=== PATIENT | male | born 1950 | race African-American/Black ===

== ENCOUNTER 2018-05-04 07:49 | Day surgery (SDC) | payer MEDICARE ==
[2018-05-03 11:49] VITALS: BMI 30.5
[2018-05-04] MEDS ORDERED: Lidocaine 1% PF 5 ML VIAL ONE (15:00)
[2018-05-04] MEDS ORDERED: PROPOFOL 200 MG/20 ML VIAL ONE (15:00)
--- NOTE | 2018-05-05 01:05 | OP ---
DATE OF PROCEDURE: 05/04/2018 PREPROCEDURE DIAGNOSES: Personal history of colon cancer, 4 years ago, had low anterior resection wi caitie Paula. It is not clear we had his initial diagnosis. We have not performed his previous co lonoscopies. He is a new patient to the office on 04/10/2018. POSTPROCEDURE DIAGNOSES: 1. Four polyps scattered in the ascending colon from 2-4 mm in size were removed with a combination of cold snare and hot snare polypectomy. As the patient is on Coumadin, the larger of the 2 polypect lynn sites were clipped. The largest was 4 mm in size. 2. Mass in the ascending colon at 50 cm from the colostomy opening. This is contracted centrally. It is borderline in appearance removed endoscopically. Multiple biopsies were obtained and obt ained the pathology to determine best management of this. We would not be able to remove today darby arnold to the fact that he is on Coumadin, which has only been held for 2 days, and with his prior hist ory of malignancies, this polyp has significant risk for early malignancy or high-grade dysplasia, wh ich would require a segmental resection. Therefore, wait for pathology on biopsies and then make leslie ns for either attempted endoscopic removal with endoscopic mucosal resection or surgical referral onc e pathology is available. PLAN: He will follow up in my office next 05/11/2018, appointment was made for him at 12:00. These findings were discussed with the patient and the . PROCEDURE IN DETAIL: After the patient was informed of the risks, benefits, possible complications o f endoscopy including perforation, bleeding, reactions to medication and aspiration, informed consent was obtained. The patient was brought to the endoscopy suite where he was sedated in a gradual fash ion. Once he was comfortable, a digital exam with ostomy was performed in the left lower quadrant. The endoscope was advanced through the ostomy and into the colon to the cecum, which was identified b y ileocecal valve and appendiceal orifice. There were 4 diminutive polyps from the cecum to the asce nding colon, which were removed by snare polypectomy with hot and cold. Two had some significant bur n sites and these were clipped to reduce risk of bleeding, as the patient needs to restart his Coumad in. There was a large polyp at 50 cm from the ostomy, which is probably 4 cm in size, broad-base with demario tral depression. It was not hard or firm, but multiple biopsies were taken and submitted to Patholog y. It was not removed for the reasons outlined above in the postprocedure diagnosis. The scope was then removed. No other polyps or lesions were seen. The patient does not have anymore. The o stomy bag was replaced. The patient brought to recovery room in stable condition. POSTPROCEDURE RECOMMENDATIONS: The patient is instructed to resume his coumadin today with regard to the fact he had a pulmonary embolus in February.
== END 2018-05-04 12:45 | disposition home or self-care (01) ==
LOC: SDC 07:49
PROVIDERS: ATTEND Internal Medicine Gastroenterology
PROC: 0DBE8ZX Excision of Large Intestine, Via Natural or Artificial Opening Endoscopic, Diagnostic (ICD-10-PCS; principal; 2018-05-04)
PROC: 0DBK8ZX Excision of Ascending Colon, Via Natural or Artificial Opening Endoscopic, Diagnostic (ICD-10-PCS; 2018-05-04)
PROC: 0DBH8ZX Excision of Cecum, Via Natural or Artificial Opening Endoscopic, Diagnostic (ICD-10-PCS; 2018-05-04)
DX: Z12.11 Encounter for screening for malignant neoplasm of colon (principal); D12.6 Benign neoplasm of colon, unspecified; I10 Essential (primary) hypertension; Z85.038 Personal history of other malignant neoplasm of large intestine; Z87.891 Personal history of nicotine dependence; Z86.711 Personal history of pulmonary embolism; Z79.01 Long term (current) use of anticoagulants; Z79.899 Other long term (current) drug therapy; Z80.0 Family history of malignant neoplasm of digestive organs; Z90.49 Acquired absence of other specified parts of digestive tract; Z93.3 Colostomy status; Z98.890 Other specified postprocedural states
CPT/HCPCS: 88305; J2001; J2704

== ENCOUNTER 2018-07-17 06:11 | Inpatient (IN) | payer MEDICARE ==
[2018-07-16 11:50] VITALS: BMI 30.9
[2018-07-17] MEDS ORDERED: cefOXitin 2 GM VIAL ONE ×3 (06:41→08:47)
[2018-07-17] MEDS ORDERED: Ketorolac Tromethamine 30 MG/ML VIAL ONE (06:41)
[2018-07-17] MEDS ORDERED: Sodium Chloride 0.9% 100 ML ONE (06:42)
[2018-07-17] MEDS ORDERED: Bupivacaine/Epinephrine 0.25% 30 ML VIAL ONE (06:48)
[2018-07-17 06:57] LABS: #Lymphocytes 1.6 thou/uL (1.20-3.40); #Monocytes 0.4 thou/uL (0.11-0.59); #Neutrophils 2.1 thou/uL (1.40-6.50); %Basophils 0.6 % (0.0-1.0); %Eosinophils 0.3 % (0.0-10.0); %Lymphocytes 39.1 % (21.0-51.0); %Monocytes 8.6 % (0.0-10.0); %Neutrophils 51.4 % (42.0-75.0); Hemoglobin 15.6 g/dL (14.0-18.0); Mean Corpuscular HGB CONC 31.6 g/dL (32.0-36.0); Mean Corpuscular Volume 98.2 fL (78.0-98.0); Mean Platelet Volume 6.8 fL (7.4-10.4); Platelet Count 289 thou/uL (130-400); Red Blood Cell (RBC) Count 5.03 mill/uL (4.70-6.10); White Blood Cell (WBC) Count 4.2 thou/uL (4.8-10.8)
[2018-07-17] MEDS ORDERED: Fentanyl 100 MCG/2 ML VIAL ONE ×3 (06:59→10:43)
[2018-07-17] MEDS ORDERED: Midazolam HCl 2 mg/2 ml Vial ONE (06:59)
[2018-07-17] MEDS ORDERED: Dexamethasone 4 mg/ml Vial ONE (07:00)
[2018-07-17] MEDS ORDERED: Lidocaine 2% w/Epinephrine 1:200K 20 ML VIAL ONE (07:15)
[2018-07-17 07:18] LABS: Anion Gap 16 mmol/L (10-20); BUN (Urea Nitrogen) 13 mg/dL (8.4-25.7); Calc. Creatinine Clearance 121 mL/min (70-130); Calcium 10.1 mg/dL (7.8-10.44); Carbon Dioxide 20 mmol/L (23-31); Chloride 108 mmol/L (98-107); Estimated GFR-MDRD Greater than 90; Glucose 113 mg/dL (80-115); Potassium 4.3 mmol/L (3.5-5.1); Sodium 140 mmol/L (136-145)
[2018-07-17] MEDS ORDERED: Lidocaine 1% w/Epinephrine 1:100K 30 ML VIAL ONE ×2 (08:30→09:47)
[2018-07-17] MEDS ORDERED: Bupivacaine HCl 0.5%/Epinephrine 1:200,000/PF 30 ml Vial ONE (13:31)
[2018-07-17] MEDS ORDERED: PROPOFOL 200 MG/20 ML VIAL ONE (14:54)
[2018-07-17] MEDS ORDERED: Ondansetron PF 4 MG/2 ML Vial ONE (14:54)
[2018-07-17] MEDS ORDERED: Lidocaine 1% PF 5 ML VIAL ONE (14:54)
[2018-07-17] MEDS ORDERED: Glycopyrrolate 0.2 MG/ML 5 ML SYRINGE ONE (14:54)
[2018-07-17] MEDS ORDERED: hydrALAZINE 20 MG/ML VIAL SLOW IVP PRN (15:41)
[2018-07-17] MEDS ORDERED: Promethazine HCl 25 MG/ML VIAL IM PRN (15:41)
[2018-07-17] MEDS ORDERED: Morphine 10 MG/ML VIAL SLOW IVP PRN (15:41)
[2018-07-17] MEDS ORDERED: Ondansetron PF 4 MG/2 ML Vial IVP PRN (15:41)
[2018-07-17] MEDS: D5 1/2 NS w/20 mEq KCL 1,000 ML IV SCH (16:11)
[2018-07-17] MEDS: Ketorolac Tromethamine 30 MG/ML VIAL IVP SCH ×3 (16:11→22:05)
[2018-07-17] MEDS: Acetaminophen 1,000 MG in Premix Bag 1 BAG IVPB SCH ×2 (16:54→22:06)
[2018-07-17] MEDS: Enoxaparin Sodium 40 MG/0.4 ML SYRINGE SC SCH (20:34)
[2018-07-17] MEDS: Famotidine/PF 20 mg/2ml Vial SLOW IVP SCH (20:34)
[2018-07-17] MEDS: Famotidine 20 MG TAB PO SCH (20:35)
[2018-07-18] MEDS: D5 1/2 NS w/20 mEq KCL 1,000 ML IV SCH ×3 (02:00→16:44)
[2018-07-18] MEDS: Ketorolac Tromethamine 30 MG/ML VIAL IVP SCH ×4 (03:58→22:29)
[2018-07-18] MEDS: Acetaminophen 1,000 MG in Premix Bag 1 BAG IVPB SCH ×2 (03:59→08:52)
[2018-07-18 06:04] LABS: #Lymphocytes 0.7 thou/uL (1.20-3.40); #Monocytes 0.5 thou/uL (0.11-0.59); #Neutrophils 5.5 thou/uL (1.40-6.50); %Basophils 0.1 % (0.0-1.0); %Eosinophils 0.1 % (0.0-10.0); %Lymphocytes 10.1 % (21.0-51.0); %Monocytes 7.7 % (0.0-10.0); %Neutrophils 82.1 % (42.0-75.0); Hemoglobin 11.3 g/dL (14.0-18.0); Mean Corpuscular Hemoglobin 31.6 pg (27.0-31.0); Mean Corpuscular Volume 98.6 fL (78.0-98.0); Platelet Count 212 thou/uL (130-400); RBC Distribution Width 11.6 % (11.5-14.5); Red Blood Cell (RBC) Count 3.56 mill/uL (4.70-6.10); White Blood Cell (WBC) Count 6.7 thou/uL (4.8-10.8)
[2018-07-18 07:08] LABS: Anion Gap 9 mmol/L (10-20); BUN (Urea Nitrogen) 12 mg/dL (8.4-25.7); Calc. Creatinine Clearance 127 mL/min (70-130); Calcium 8.3 mg/dL (7.8-10.44); Carbon Dioxide 24 mmol/L (23-31); Chloride 106 mmol/L (98-107); Estimated GFR-MDRD Greater than 90; Glucose 129 mg/dL (80-115); Potassium 3.9 mmol/L (3.5-5.1); Sodium 135 mmol/L (136-145)
[2018-07-18] MEDS ORDERED: HYDROcodone/Acetaminophen 7.5/325 mg Tablet PO PRN ×2 (08:29)
[2018-07-18] MEDS: Famotidine 20 MG TAB PO SCH ×2 (08:52→20:39)
[2018-07-18] MEDS: Famotidine/PF 20 mg/2ml Vial SLOW IVP SCH ×2 (08:52→20:40)
--- NOTE | 2018-07-18 09:57 | PRG ---
DATE OF SERVICE: 07/18/2018 Mr. Tompkins is postoperative day #1 from repair of a large left inguinal hernia and a laparoscopic rig ht colectomy. He is resting comfortably on the surgical floor. He has no complaints. His Keller cat heter was just removed and he has not voided. He has been tolerating clear liquid diet overnight. Marilyn palmer denies nausea or vomiting. He has had no significant ostomy output since surgery. PHYSICAL EXAMINATION: VITAL SIGNS: He is afebrile, pulse is 92 and regular, blood pressure is 137/79. LUNGS: Clear to auscultation. CARDIAC: Regular rate and rhythm. ABDOMEN: Soft. All laparoscopic incisions are well healed as well as his left inguinal incision. Marilyn palmer does have some swelling along his left spermatic cord and down into his scrotum. This is certainly not unexpected given his large hydrocele and his very large previously incarcerated inguinal hernia. LABORATORY STUDIES: CBC reveals a hemoglobin of 11.3 with a white blood cell count of 6.7. Chemistr y profile reveals no significant electrolyte abnormalities. BUN and creatinine are normal. ASSESSMENT: The patient is doing well following his fairly lengthy surgery for his large incarcerate d hernia and his right hemicolectomy. We will continue clear liquids today and hopefully he will be able to void. I have encouraged ambulation and minimization of narcotics.
[2018-07-18] MEDS: Enoxaparin Sodium 40 MG/0.4 ML SYRINGE SC SCH (20:39)
[2018-07-19] MEDS: D5 1/2 NS w/20 mEq KCL 1,000 ML IV SCH (00:50)
[2018-07-19] MEDS: Ketorolac Tromethamine 30 MG/ML VIAL IVP SCH ×2 (05:44→10:38)
[2018-07-19] MEDS ORDERED: D5 1/2 NS w/20 mEq KCL 1,000 ML IV SCH (09:00)
[2018-07-19] MEDS: Famotidine 20 MG TAB PO SCH (09:11)
[2018-07-19] MEDS: Famotidine/PF 20 mg/2ml Vial SLOW IVP SCH (09:12)
[2018-07-19 09:19] LABS: #Monocytes 0.3 thou/uL (0.11-0.59); #Neutrophils 5.4 thou/uL (1.40-6.50); %Eosinophils 0.3 % (0.0-10.0); %Lymphocytes 15.2 % (21.0-51.0); %Monocytes 4.4 % (0.0-10.0); Hemoglobin 12.2 g/dL (14.0-18.0); Mean Corpuscular HGB CONC 32.4 g/dL (32.0-36.0); Mean Corpuscular Volume 98.9 fL (78.0-98.0); Platelet Count 210 thou/uL (130-400); RBC Distribution Width 11.8 % (11.5-14.5); Red Blood Cell (RBC) Count 3.81 mill/uL (4.70-6.10); White Blood Cell (WBC) Count 6.8 thou/uL (4.8-10.8)
[2018-07-19 12:30] VITALS: BP 150/79; TEMP 98.5
--- NOTE | 2018-07-20 13:39 | OP ---
DATE OF PROCEDURE: 07/17/2018 PREOPERATIVE DIAGNOSES: Colonoscopically unresectable proximal transverse colon polyp, incarcerated left inguinal hernia, left hydrocele. POSTOPERATIVE DIAGNOSES: Colonoscopically unresectable proximal transverse colon polyp, incarcerated left inguinal hernia, left hydrocele. OPERATION PERFORMED: Repair of incarcerated left inguinal hernia with extra-large mesh, patch and pl ug, left inguinal hydrocelectomy, laparoscopic hand-assisted right hemicolectomy. SURGEON: Arvin Paula M.D. ANESTHESIA: General endotracheal. INDICATIONS: The patient is a 68-year-old black male. He had undergone recent colonoscopy revealing concerning polyp that was unresectable at approximately the hepatic flexure. This was tattooed. He is referred for treatment of this. The patient is known to myself from prior abdominoperineal resec tion. He therefore has a permanent left-sided colostomy. He had a large left inguinal hernia previo usly that had never been addressed. Due primarily to logistical concerns, I have recommended repairi ng both the hernia and performing the colon resection simultaneously. PROCEDURE IN DETAIL: Informed consent was obtained. The patient was taken to the operating room whe re general endotracheal anesthesia obtained with the patient in supine position. A TAP block had bee n placed by Anesthesia preoperatively. His abdomen and groin were prepped with ChloraPrep and draped in sterile fashion. His colostomy was excluded with a sterile occlusive dressing. Attention was turned first to the left hernia. Local anesthetic was infiltrated using 1% lidocaine w ith epinephrine and an oblique left inguinal incision was created. Dissection was carried through sk in and subcutaneous tissue down to the fascia. This was opened parallel to its fibers so as to open the external ring. There was a large amount of tissue that comprised the spermatic cord. With diffi culty, this was dissected and encircled with a Alaina drain. I dissected the cord structures and fo und that he had a very large cord lipoma. This was resected back to the internal ring and removed. There was also a large hernia sac. This was a large indirect hernia. This was also carefully dissec sarah from surrounding cord structures and mobilized back to the internal ring. This was a large defec t. I carefully mobilized the sac without ever entering the sac back to the preperitoneal space. I t fely obtained an extra-large mesh plug, which I secured to the apex of the hernia sac and I inverted t he complex into the preperitoneal space. The mesh plug was secured to surrounding fascia with 4 inte rrupted sutures of 2-0 Vicryl. I then placed 2 imbricating sutures of 2-0 Vicryl. A mesh patch was then obtained, trimmed to appropriate size and placed within the floor of the inguin al canal. It was secured to surrounding structures with several interrupted sutures of 2-0 Vicryl. The internal ring was reapproximated by securing the mesh tails lateral to the internal ring. The hydrocele was easily reduced up into the inguinal canal. I dissected down to the level of the tu chavez vaginalis. This was incised and a large volume of clear yellowish fluid was aspirated. I then excised a large window of the tunica vaginalis. This is a very large hydrocele and I therefore was u nable to completely excise the tunica vaginalis, but most of it was removed. Meticulous hemostasis o btained with electrocautery and the testicle was replaced within the scrotum. The wound was irrigated and all irrigant was aspirated. Meticulous hemostasis obtained. The wound w as closed in layers using 3-0 Vicryl to approximate the fascia and the remainder of the wound closed in layers with 3-0 and 4-0 Monocryl. Dermabond was placed externally. Attention was then turned to his colon. Port site selection had to be tailored because of his prior surgery and his known left lower quadrant colostomy. I initially obtained access in the left upper q uadrant where I made 5 mm incision, placed a Veress needle and passed a 5 mm port in the abdomen. In spection was carried out using the laparoscopic camera. I selected a site for a second 5 mm port jus t to the right of midline in an area that did not involve any adhesions. I then selected a site for the colon extraction in the right upper quadrant and placed an oblique 8 cm incision. Muscle splitti ng was used to gain access into the abdominal cavity and an Jose wound retractor was placed. GelPo rt was fixed to the wound retractor and operation was continued. I was able to identify the site of the tattoo in the proximal transverse colon. I addressed the mid transverse colon, where I cleared t he omentum. I then cleared the omentum off much of the distal transverse colon to allow mobilization . The right colon was mobilized from lateral abdominal wall by incising the white line of Toldt. Th e hepatic flexure was mobilized in a similar fashion. All dissection was carried out with the LigaSu re device. Extensive dissection had to be carried out at the right lower quadrant due to adhesions f rom his prior surgery. Significant work had to be performed to mobilize the appendix and even more s o the distal ileum, which was adherent within the pelvis. With effort, I was able to fully mobilize the ileum, the right colon and proximal transverse colon. These were all then withdrawn through the GelPort. Due to the volume of tissue, I was unable to perform a double-stapled anastomosis. Instead , I divided the transverse colon several centimeters distal to the area of the tattoo with a single f haydee of the LUANA stapler. I then selected an appropriate segment of the ileum and divided this with an other fire. The intervening mesentery was taken down between clamps and 2-0 silk ties. The middle c olic and ileocolic vessels were ligated with 2-0 silk ties. The specimen was passed off the field. The two ends of the bowel were approximated in an antiperistaltic fashion. These were anastomosed wi th a single fire of the LUANA-75 stapler. The common enterotomy was then closed with a final fire of t same stapler. The anastomosis was buttressed with several interrupted sutures of 3-0 silk. The m esenteric defect was not closed. The bowel was then dropped back down to the abdominal cavity and pn eumoperitoneum was reestablished. The abdomen was thoroughly irrigated and all irrigant was aspirate d. There was no evidence of any blood loss from any site. All ports and instruments removed under d irect vision. Pneumoperitoneum was carefully evacuated. The fascia at the extraction site was close d in two layers with running suture of number 1 PDS. Not mentioned above is that during the time that the bowel was opened, segregated instruments were us ed and gloves were changed after this. Also, as the abdomen has been closed, the closing set was use d and prior to initiating closure, gowns and gloves were changed. After closing the fascia, the wound was irrigated with 2 liters of saline and all irrigant was aspira sraah. The remainder of the wound was closed in layers with 3-0 and 4-0 Monocryl. The other port site s were closed with 4-0 Monocryl. Dermabond was placed external to each port site. There were no com plications during any portion of the operation. Blood loss was negligible. The patient tolerated th e procedure well and was taken to recovery room in stable condition.
== END 2018-07-19 13:22 | disposition home or self-care (01) | DRG 330 ==
LOC: SURG A 06:11 → EDSTATUS 14:01 → T4-A 14:36 → SURG A 18:14
PROVIDERS: ADMIT Specialist; ATTEND Specialist
PROC: 0DTF4ZZ Resection of Right Large Intestine, Percutaneous Endoscopic Approach (ICD-10-PCS; principal; 2018-07-17)
PROC: 0VB70ZZ Excision of Left Tunica Vaginalis, Open Approach (ICD-10-PCS; 2018-07-17)
PROC: 0YU60JZ Supplement Left Inguinal Region with Synthetic Substitute, Open Approach (ICD-10-PCS; 2018-07-17)
PROC: 0VBG0ZZ Excision of Left Spermatic Cord, Open Approach (ICD-10-PCS; 2018-07-17)
DX: D12.2 Benign neoplasm of ascending colon (principal); K40.30 Unilateral inguinal hernia, with obstruction, without gangrene, not specified as recurrent; I10 Essential (primary) hypertension; N43.3 Hydrocele, unspecified; D17.6 Benign lipomatous neoplasm of spermatic cord; Z85.048 Personal history of other malignant neoplasm of rectum, rectosigmoid junction, and anus; Z93.3 Colostomy status; Z79.01 Long term (current) use of anticoagulants
CPT/HCPCS: 36415; 80048; 85025; 88307; C1781; J0131; J0360; J0670; J0694; J1100; J1650; J1885; J2001; J2250; J2405; J2704; J3010; J7050; S0028

== ENCOUNTER 2018-08-05 03:36 | Emergency (ER) | payer MEDICARE | END 2018-08-05 06:42 | disposition home or self-care (01) | LOC: ERS 03:36 | DX: L76.32 Postprocedural hematoma of skin and subcutaneous tissue following other procedure (principal); L02.211 Cutaneous abscess of abdominal wall; I10 Essential (primary) hypertension; Z87.891 Personal history of nicotine dependence; Z79.01 Long term (current) use of anticoagulants; Z79.899 Other long term (current) drug therapy | CPT/HCPCS: 99284 ==

== ENCOUNTER 2018-08-14 07:51 | Inpatient (IN) | payer MEDICARE ==
[2018-08-14 12:52] VITALS: BMI 28.0
[2018-08-14] MEDS ORDERED: Dextrose 5% in Water 1,000 ML IV PRN (16:02)
[2018-08-14] MEDS ORDERED: Dextrose 50% Abboject 50 ML SYRINGE SLOW IVP PRN (16:02)
[2018-08-14] MEDS ORDERED: Lactated Ringer's 1,000 ML IV SCH (16:15)
[2018-08-14 16:54] LABS: #Lymphocytes 0.8 thou/uL (1.20-3.40); #Monocytes 0.3 thou/uL (0.11-0.59); #Neutrophils 6.4 thou/uL (1.40-6.50); %Eosinophils 0.4 % (0.0-10.0); %Lymphocytes 10.4 % (21.0-51.0); %Monocytes 3.6 % (0.0-10.0); %Neutrophils 85.7 % (42.0-75.0); Hemoglobin 8.3 g/dL (14.0-18.0); Mean Corpuscular HGB CONC 33.6 g/dL (32.0-36.0); Mean Corpuscular Volume 89.3 fL (78.0-98.0); Mean Platelet Volume 6.6 fL (7.4-10.4); Platelet Count 282 thou/uL (130-400); RBC Distribution Width 14.6 % (11.5-14.5); Red Blood Cell (RBC) Count 2.78 mill/uL (4.70-6.10); White Blood Cell (WBC) Count 7.4 thou/uL (4.8-10.8)
--- NOTE | 2018-08-14 17:02 | RAD ---
SINGLE VIEW OF THE CHEST: 08/14/18 COMPARISON: 08/04/14. HISTORY: Pneumonia. COMPARISON: Single view of the chest shows a normal sized cardiomediastinal silhouette. There is a hazy opacity i n the right lower lung base which could represent an infiltrate and/or adjacent infiltrate. No left s ided infiltrate or pleural effusion is seen. IMPRESSION: Right basilar atelectasis versus infiltrate and adjacent pleural effusion. POS: [facility]
[2018-08-14 17:26] LABS: ALT (SGPT) 17 U/L (8-55); AST (SGOT) 26 U/L (5-34); Albumin 2.6 g/dL (3.4-4.8); Alkaline Phosphatase 43 U/L (40-150); Anion Gap 12 mmol/L (10-20); BUN (Urea Nitrogen) 8 mg/dL (8.4-25.7); Bilirubin, Total 0.6 mg/dL (0.2-1.2); Calc. Creatinine Clearance 140 mL/min (70-130); Calcium 8.7 mg/dL (7.8-10.44); Carbon Dioxide 25 mmol/L (23-31); Chloride 95 mmol/L (98-107); Estimated GFR-MDRD Greater than 90; Globulin 4.7 g/dL (2.4-3.5); Glucose 111 mg/dL (80-115); Potassium 3.7 mmol/L (3.5-5.1); Protein, Total 7.3 g/dL (5.8-8.1); Sodium 128 mmol/L (136-145)
[2018-08-14] MEDS: Sodium Chloride 0.9% 1,000 ML IV SCH (18:05)
[2018-08-14] MEDS: Enoxaparin Sodium 40 MG/0.4 ML SYRINGE SC SCH (21:20)
[2018-08-14] MEDS: Ciprofloxacin 500 MG TAB PO SCH (21:20)
[2018-08-14] MEDS: Famotidine 20 MG TAB PO SCH (21:20)
[2018-08-15] MEDS: Tamsulosin HCl 0.4 MG CAP PO SCH (08:46)
[2018-08-15] MEDS: Famotidine 20 MG TAB PO SCH ×2 (08:46→21:41)
[2018-08-15] MEDS: Ciprofloxacin 500 MG TAB PO SCH ×2 (08:46→21:41)
[2018-08-15] MEDS: Sodium Chloride 0.9% 1,000 ML IV SCH ×2 (08:47→22:46)
--- NOTE | 2018-08-15 10:52 | CT ---
CT ABDOMEN AND PELVIS WITH CONTRAST: INDICATIONS: Colon cancer followup. Status post colectomy, hernia repair, and hydrocelectomy on 07/23/2018. COMPARISON: CT abdomen and pelvis from 04/11/2014. TECHNIQUE: Multiple axial tomograms obtained through the abdomen and pelvis with IV enhancement. Oral contrast was given. FINDINGS: Stranding in the right lung base suggests mild atelectasis. Mild atelectatic change in the posterior gutter on the left is also noted. Small cysts along the inferior outer margin of the liver, measuring approximately 1 cm, are stable. The liver, spleen, and pancreas appear unremarkable. Small sliding diaphragmatic hernia. Stomach and duodenum unremarkable. Small bowel loops appear normal. There are changes of a right colectomy and a partial left colectomy. There is a left colostomy in th e left lower quadrant. Rectal stump. There is a circumscribed external lumen of gas-fluid collection in the anterior right abdomen, abutti ng the anterior abdominal wall. This also abuts the colon and extends to the suture line, in the wal l of the colon. A small filling defect within the colon with dislocation is present. A small extral uminal gas pocket extends from this fluid collection, superiorly, along the anterior abdominal wall, to the inferior margin of the liver, anteriorly. This circumscribed, fluid-dense collection measures 4 cm in craniocaudal dimension in the coronal plane x approximately 2 cm in AP dimension in the axia l plane. There is an incision in the left groin with radiopaque packing material in the subcutaneous tissues o f the incision site. There is an underlying complex fluid collection within the left inguinal ring, extending into the left scrotum, with tiny gas pockets, measuring up to 6 cm. This corresponds to th e history of recent surgery and hydrocelectomy; however, the underlying complex fluid-air collection is concerning for postoperative hematoma or abscess. The adrenal glands appear normal. The kidneys show mild perinephric stranding. There are small, cystic lesions in the right renal griselda ex, which are stable from the prior study. There is no hydronephrosis or hydroureter. The bladder is mildly distended. There is a 2 to 3 mm calculus within the lumen of the bladder, at t he right UVJ. This does not appear to be producing obstructive change on the right. IMPRESSION: 1. Extraluminal fluid-gas collection along the anterior abdominal wall, in the right mid abdomen, ab utting the suture line of the transverse colon, at the hepatic flexure. Findings may indicate a smal l leak with confined abscess. This extraluminal gas extends along the anterior abdominal wall, super iorly, to the margin of the liver. 2. Incision site in the left inguinal region, consistent with a history of hernia repair. Radiopaqu e packing material in the subcutaneous tissues. There is an underlying complex fluid-gas collection within the inguinal canal and into the scrotum, concerning for hematoma or abscess. Recommend clinic al correlation. 3. Tiny calculus along the posterior bladder wall, at the right ureterovesical junction. No obstruc tive changes apparent. Dr. Paula is being paged for notification of these findings at the time of the dictation. CODE CR POS: [facility]
[2018-08-15] MEDS: Ferrous Sulfate 325 MG TAB PO SCH (16:56)
[2018-08-15] MEDS: Acetaminophen 500 MG TAB PO PRN (16:56)
[2018-08-15] MEDS: metroNIDAZOLE 500 MG in Premix Bag 1 BAG IVPB SCH (19:12)
[2018-08-15] MEDS: Enoxaparin Sodium 40 MG/0.4 ML SYRINGE SC SCH (21:41)
--- NOTE | 2018-08-15 23:22 | PRG ---
DATE OF SERVICE: 08/15/2018 SUBJECTIVE: Mr. Tompkins is in hospital, day #2. He is about a month out from his laparoscopic right hemicolectomy and repair of a large left inguinal hernia and hydrocele. This morning, he has no complaints. He denies any pain. He tells me he was eating better and feeling better. He was hydrated overnight with normal saline. I have encouraged oral intake and physical activity. OBJECTIVE: VITAL SIGNS: On examination, it is noted that he has had some low-grade temperature elevations up to 100.9. His pulse has been elevated intermittently also up to 120 earlier today, but generally around 100. Blood pressure is within normal limits. LABORATORY STUDIES: He did not have any repeat laboratory studies today. CT scan of the abdomen and pelvis was obtained today. This does reveal a loculated extraluminal air/fluid collection in the right abdomen near his right colonic anastomosis. There is no contrast in this even though the contrast proceeds through the anastomosis. I am not certain if this may have represented a loculated leak that is resolving on its own. ASSESSMENT: He seems to be stable. In light of the CT scan, I will start him on metronidazole as well as his current ciprofloxacin. We will see how he does over the next day or two before considering appropriate placement. Job ID: [id number]
[2018-08-16] MEDS: metroNIDAZOLE 500 MG in Premix Bag 1 BAG IVPB SCH ×2 (01:02→10:49)
--- NOTE | 2018-08-16 04:22 | HP ---
CHIEF COMPLAINT: Malaise, weakness. HISTORY OF PRESENT ILLNESS: This patient is a 68-year-old black male. He has a history of rectal cancer for which he underwent abdominoperineal resection in August 2014. He, at that time, was also recognized to have a large left inguinal hernia. He never followed up at that time for repair. He did undergo subsequent colonoscopy revealing a concerning right-sided colon polyp. I recommended laparoscopic right hemicolectomy. I felt that I could likely safely repair his left inguinal hernia at the same time since the patient has issues with appropriate followup. The patient underwent a relatively lengthy and challenging left inguinal hernia repair, left hydrocelectomy, and laparoscopic right hemicolectomy on July 17. His initial followup in my office after the surgery was unremarkable and he seemed to be doing well. About a week ago, he had presented to an outside hospital in [place]. Labs and CT scan were obtained at that point, and the patient was referred to our emergency room. In my absence, he seemed to have no significant problems and was prescribed antibiotics and discharged home. He followed up in my office this past week. He did have a small area of drainage from the medial aspect of his left inguinal incision. This was treated with a Alaina drain. He was continued on ciprofloxacin at that time and encouraged to increase his activity and his oral intake. He denied any pain or fever at that time. The day prior to this admission, on August 13, he had again called the office. His complained of him having little appetite and not really moving very much secondary to feeling weak. He was encouraged to present to this hospital. Unfortunately, he was taken by ambulance to the hospital in [place] once again. Due to bed restrictions, he was kept there overnight and therefore did not present to [facility] until today, August 14. Upon arrival, they have no specific complaints. He denies any pain at all. He tells me that he is eating well and ostomy function is good. He denies pain down in his groin or scrotum. His initial vital signs did, however, reveal some degree of tachycardia with a heart rate of about 100. He was afebrile. As it is difficult to discern what if any problems are truly occurring, I recommended admission to determine what his actual condition is. It can be challenging to obtain appropriate information from this patient and his . PAST MEDICAL HISTORY: Significant for a history of rectal cancer, large left inguinal hernia, hypertension, and history of pulmonary embolus. MEDICATIONS: Preoperative medications include nifedipine and Coumadin. ALLERGIES: NO KNOWN DRUG ALLERGIES. PERSONAL AND SOCIAL HISTORY: He is with three children. Retired and lives in [place]. REVIEW OF SYSTEMS: Otherwise unremarkable. FAMILY HISTORY: Noncontributory. PHYSICAL EXAMINATION: VITAL SIGNS: He is afebrile. Pulse is about 100 and blood pressure is within normal limits at 112/70. GENERAL: He is a well developed and well nourished, resting comfortably. Alert and oriented x3 and without complaints. HEAD, EYES, EARS, NOSE, and THROAT: Unremarkable. NECK: Supple. LUNGS: Clear to auscultation. CARDIAC: Regular rate and rhythm. ABDOMEN: Soft. All laparoscopic incisions are nicely healed. Bowel sounds are present and normoactive. Ostomy appliance is intact in the left lower quadrant. In the left lower inguinal area, his incision is well healed. He has a quarter-inch Alaina drain emanating from the medial aspect of his hernia incision. He has significant induration in the inguinal canal extending down into the left hemiscrotum. This has been chronic since his surgery and I suspect it is related to his significant inflammation following treatment of his hernia and hydrocele. LABORATORY DATA: CBC reveals a hemoglobin of 8.3 with white blood cell count of 7.4, and platelet count is 282. His hemoglobin level is substantially lower than when last checked, on July 19, it was 12.2. He tells me that he only recently resumed his Coumadin. His metabolic profile reveals sodium and chloride both low at 128 and 95 respectively. His BUN and creatinine are normal. His albumin is low at 2.6, and other liver function tests are within normal limits. Chest x-ray was obtained revealing possibly some atelectasis at the right base. ASSESSMENT: It is still difficult to discern what is really going on with Mr. Tompkins. He is certainly anemic and this may be symptomatic for him. I will check a CT scan of his abdomen and pelvis to rule out any significant problem. He did have CT scans performed when he was in [place], but I have never been provided with the disc from either of the CT scans. I was told by the emergency room physician that air/fluid collection on the right side of his abdomen near his anastomosis was significantly improved between the 2 CT scans. He has evidence of a hematoma associated with his left groin also. I will continue with antibiotics for now and obtain Occupational and Physical Therapy consults. He may benefit from a course of rehabilitation or [facility] facility. Given that he is about a month out from surgery, I cannot imagine he has any significant intraabdominal problem. Job ID: [id number]
[2018-08-16] MEDS: Acetaminophen 500 MG TAB PO PRN ×3 (05:19→20:46)
[2018-08-16 06:19] LABS: #Lymphocytes 0.7 thou/uL (1.20-3.40); #Monocytes 0.4 thou/uL (0.11-0.59); #Neutrophils 6.2 thou/uL (1.40-6.50); %Eosinophils 0.5 % (0.0-10.0); %Monocytes 4.8 % (0.0-10.0); %Neutrophils 84.8 % (42.0-75.0); Hemoglobin 7.8 g/dL (14.0-18.0); Mean Corpuscular HGB CONC 33.1 g/dL (32.0-36.0); Mean Corpuscular Hemoglobin 29.6 pg (27.0-31.0); Mean Corpuscular Volume 89.3 fL (78.0-98.0); Mean Platelet Volume 6.7 fL (7.4-10.4); Platelet Count 303 thou/uL (130-400); RBC Distribution Width 14.7 % (11.5-14.5); Red Blood Cell (RBC) Count 2.63 mill/uL (4.70-6.10); White Blood Cell (WBC) Count 7.3 thou/uL (4.8-10.8)
[2018-08-16 06:39] LABS: Anion Gap 11 mmol/L (10-20); BUN (Urea Nitrogen) 5 mg/dL (8.4-25.7); Calc. Creatinine Clearance 148 mL/min (70-130); Calcium 8.4 mg/dL (7.8-10.44); Carbon Dioxide 24 mmol/L (23-31); Chloride 99 mmol/L (98-107); Estimated GFR-MDRD Greater than 90; Glucose 114 mg/dL (80-115); Potassium 3.8 mmol/L (3.5-5.1); Sodium 130 mmol/L (136-145)
[2018-08-16 07:37] LABS: INR-International Normal Ratio 1.7
[2018-08-16 07:38] LABS: PTT 71.9 SEC (22.9-36.1)
[2018-08-16 07:50] LABS: ALT (SGPT) 12 U/L (8-55); AST (SGOT) 19 U/L (5-34); Albumin 2.5 g/dL (3.4-4.8); Alkaline Phosphatase 36 U/L (40-150); Anion Gap 13 mmol/L (10-20); BUN (Urea Nitrogen) 5 mg/dL (8.4-25.7); Bilirubin, Total 0.7 mg/dL (0.2-1.2); Calc. Creatinine Clearance 142 mL/min (70-130); Calcium 8.3 mg/dL (7.8-10.44); Carbon Dioxide 22 mmol/L (23-31); Chloride 99 mmol/L (98-107); Estimated GFR-MDRD Greater than 90; Globulin 4.2 g/dL (2.4-3.5); Glucose 115 mg/dL (80-115); Potassium 3.8 mmol/L (3.5-5.1); Protein, Total 6.7 g/dL (5.8-8.1); Sodium 130 mmol/L (136-145)
[2018-08-16] MEDS: Ciprofloxacin 500 MG TAB PO SCH ×2 (08:16→20:47)
[2018-08-16] MEDS: Ferrous Sulfate 325 MG TAB PO SCH ×2 (08:16→18:54)
[2018-08-16] MEDS: Tamsulosin HCl 0.4 MG CAP PO SCH (09:50)
[2018-08-16] MEDS: Famotidine 20 MG TAB PO SCH ×2 (09:50→20:47)
--- NOTE | 2018-08-16 14:14 | PRG ---
DATE OF SERVICE: 08/16/2018 SUBJECTIVE: Mr. Tompkins is hospital day #3 for evaluation of anemia, malaise, and weakness. He has no specific complaints. He denies any abdominal or groin pain. He tells me his bowel function per colostomy is good. He does note some very mild right upper lateral chest discomfort with deep inspiration. He believes his appetite is good and his colostomy is working well. He denies any of visualized blood loss from any location. OBJECTIVE: VITAL SIGNS: On examination, his temperature is 98.0. Maximum temperature earlier this morning was 100.4. Pulse is 96, blood pressure 120/75. LUNGS: Clear to auscultation anteriorly. CARDIAC: Regular rate and rhythm. ABDOMEN: Soft with normoactive bowel sounds. All incisions are nicely healed. No focal area of tenderness. He specifically has no tenderness in the right abdomen anteriorly or laterally or in the subcostal region. Bowel sounds are present and normoactive. EXTREMITIES: Examination of his left groin incision reveals the Alaina drain still intact. I removed it today uneventfully. There is no foul smell from the area. When I probed this area with a Q-tip, it seems to extend down likely to the fascia of the abdominal wall. This is about 4 cm internally. Cultures were obtained of this area. LABORATORY DATA: PT/PTT was obtained reviewed and he has an INR of 1.7. He tells me he only took his Coumadin for a couple of days, but it is nonetheless elevated. Chemistry profile reveals his sodium is still low at 130, but it has come up somewhat since he has been on saline. BUN and creatinine are normal. Albumin is low at 2.5. CBC reveals his hemoglobin is down to 7.8. It was 8.3 two days ago. White blood cell count is 7.3, but he has a bit of a left shift with 85% neutrophils. ASSESSMENT AND PLAN: The patient who is a month out today from a laparoscopic right hemicolectomy and repair of a large incarcerated left inguinal hernia and hydrocele. I am concerned that the opening in his left groin could potentially communicate internally, may in fact be a wound infection rather than just a draining hematoma. Cultures will help to define this. He does have mesh at his hernia repair site and I am concerned that he could potentially have an infection related to this. I will continue his antibiotics pending culture results. He is encouraged to ambulate and eat well and will continue his normal saline for now secondary to his electrolyte abnormalities. He tells me he is very weak and for this reason, I will transfuse a couple units of packed red blood cells in treatment of his hemoglobin of 7.8. I have discussed all this at length with the patient and his . Job ID: [id number]
[2018-08-16] MEDS: Sodium Chloride 0.9% 1,000 ML IV SCH (18:52)
[2018-08-16] MEDS: Enoxaparin Sodium 40 MG/0.4 ML SYRINGE SC SCH (22:00)
[2018-08-17] MEDS: metroNIDAZOLE 500 MG in Premix Bag 1 BAG IVPB SCH ×4 (01:15→16:58)
[2018-08-17] MEDS: Sodium Chloride 0.9% 1,000 ML IV SCH ×2 (03:44→09:27)
[2018-08-17] MEDS: Tamsulosin HCl 0.4 MG CAP PO SCH (08:36)
[2018-08-17] MEDS: Ciprofloxacin 500 MG TAB PO SCH (08:36)
[2018-08-17] MEDS: Ferrous Sulfate 325 MG TAB PO SCH ×2 (08:36→16:54)
[2018-08-17] MEDS: Famotidine 20 MG TAB PO SCH ×2 (08:36→21:24)
[2018-08-17 08:40] LABS: #Lymphocytes 0.9 thou/uL (1.20-3.40); #Monocytes 0.3 thou/uL (0.11-0.59); #Neutrophils 7.5 thou/uL (1.40-6.50); %Basophils 0.1 % (0.0-1.0); %Eosinophils 0.5 % (0.0-10.0); %Lymphocytes 10.2 % (21.0-51.0); %Monocytes 3.3 % (0.0-10.0); %Neutrophils 85.9 % (42.0-75.0); Hemoglobin 10.2 g/dL (14.0-18.0); Mean Corpuscular HGB CONC 33.4 g/dL (32.0-36.0); Mean Corpuscular Hemoglobin 29.6 pg (27.0-31.0); Mean Corpuscular Volume 88.7 fL (78.0-98.0); Mean Platelet Volume 6.4 fL (7.4-10.4); Platelet Count 295 thou/uL (130-400); RBC Distribution Width 14.4 % (11.5-14.5); Red Blood Cell (RBC) Count 3.44 mill/uL (4.70-6.10); White Blood Cell (WBC) Count 8.8 thou/uL (4.8-10.8)
[2018-08-17 09:02] LABS: Anion Gap 11 mmol/L (10-20); BUN (Urea Nitrogen) 4 mg/dL (8.4-25.7); Calc. Creatinine Clearance 140 mL/min (70-130); Calcium 8.6 mg/dL (7.8-10.44); Carbon Dioxide 24 mmol/L (23-31); Chloride 102 mmol/L (98-107); Estimated GFR-MDRD Greater than 90; Glucose 110 mg/dL (80-115); Potassium 3.6 mmol/L (3.5-5.1); Sodium 133 mmol/L (136-145)
--- NOTE | 2018-08-17 09:52 | PRG ---
DATE OF SERVICE: 08/17/2018 SUBJECTIVE: Mr. Tompkins is hospital day #4 following his readmission. He had a laparoscopic right hemicolectomy and left inguinal hernia repair and hydrocele repair on July 17. He presented to the hospital because he had malaise. His told me he was not getting out of bed and was not eating. He has done well since being in the hospital. He has had some low-grade temperature elevations up to a high of 100.9. He tells me he is eating well and his ostomy functions well and he denies pain. I am told that he is doing better, ambulating. His white blood cell count have been normal, but he had become progressively anemic and yesterday, his hemoglobin was 7.8. I decided to transfuse him with blood secondary to his perceived weakness and his hemoglobin today is 10.2 after 2 units of packed red blood cells. He tells me he feels much better. His appetite is good and he tells me he is feeling stronger. He has a persistent open draining wound in the left groin. Cultures were obtained yesterday, but is still pending. Had a Alaina drain, that I removed. For right now, I am treating this with external wound care. OBJECTIVE: VITAL SIGNS: On examination, he is afebrile. His temperature has not been over 99.6 in 24 hours. His pulse is 93 this morning with a blood pressure of 132/88. LUNGS: Clear to auscultation. ABDOMEN: Soft and nontender with normoactive bowel sounds. All incisions are nicely healed. : He has persistent induration in the left inguinal canal. The open part of his incision is draining minimal fluid and does not have a foul smell. ASSESSMENT: The patient appears to have stabilized. I am not certain why he became so anemic, but he is chronically anticoagulated with Coumadin, I have stopped this for now. I have also held his Lovenox for the same reason. I have encouraged him to ambulate several times a day, and he and his agreed to do this. He is eating a regular diet. Because it is difficult to manage him from home, I have recommended continue to observe him this weekend. If he remains stable, probably discharging him on Monday on probable long-term oral antibiotics. I am somewhat concerned about possible mesh infection and hope that the antibiotics can treat this appropriately. Job ID: [id number]
[2018-08-17] MEDS: Amoxicillin/Potassium Clav 875 MG TAB PO SCH ×2 (10:29→21:24)
[2018-08-17] MEDS: Acetaminophen 500 MG TAB PO PRN (16:54)
[2018-08-17] MEDS: Enoxaparin Sodium 40 MG/0.4 ML SYRINGE SC SCH (21:25)
[2018-08-18] MEDS: metroNIDAZOLE 500 MG in Premix Bag 1 BAG IVPB SCH ×3 (01:01→18:54)
[2018-08-18] MEDS: Tamsulosin HCl 0.4 MG CAP PO SCH (09:16)
[2018-08-18] MEDS: Ferrous Sulfate 325 MG TAB PO SCH ×2 (09:16→18:54)
[2018-08-18] MEDS: Famotidine 20 MG TAB PO SCH ×2 (09:16→20:45)
[2018-08-18] MEDS: Amoxicillin/Potassium Clav 875 MG TAB PO SCH ×2 (09:16→20:45)
[2018-08-18] MEDS: Sodium Chloride 0.9% 1,000 ML IV SCH (09:22)
--- NOTE | 2018-08-18 13:20 | PRG ---
DATE OF SERVICE: 08/18/2018 SUBJECTIVE: Mary Tompkins seen today for Dr. Paula. The patient was admitted 08/15/2018. The patient denies any new complaints today. He denies any nausea or vomiting. He is tolerating regular diet. OBJECTIVE: VITAL SIGNS: Temperature 99.2 degrees, 98 heart rate, and blood pressure 133/82. LUNGS: Clear to auscultation. CARDIAC: Regular rate and rhythm without murmur or gallop. ABDOMEN: Soft and nontender. Dressing in groin, healthy. Colostomy, left lower quadrant. LABORATORY DATA: No laboratories this morning. Overall, the patient is doing well. I would recommend continue antibiotics and anticipate discharge home on Monday. Job ID: [id number]
[2018-08-18] MEDS: Acetaminophen 500 MG TAB PO PRN (20:44)
[2018-08-18] MEDS: Enoxaparin Sodium 40 MG/0.4 ML SYRINGE SC SCH (20:45)
[2018-08-19] MEDS: metroNIDAZOLE 500 MG in Premix Bag 1 BAG IVPB SCH ×3 (01:37→16:56)
[2018-08-19] MEDS: Ferrous Sulfate 325 MG TAB PO SCH ×2 (09:16→16:56)
[2018-08-19] MEDS: Famotidine 20 MG TAB PO SCH ×2 (09:16→20:40)
[2018-08-19] MEDS: Amoxicillin/Potassium Clav 875 MG TAB PO SCH ×2 (09:16→20:40)
[2018-08-19] MEDS: Tamsulosin HCl 0.4 MG CAP PO SCH (09:16)
[2018-08-19] MEDS: Sodium Chloride 0.9% 1,000 ML IV SCH (09:17)
--- NOTE | 2018-08-19 17:29 | PRG ---
DATE OF SERVICE: 08/19/2018 SUBJECTIVE: Mary Tompkins is doing well today. He is tolerating his diet. He has not had a fever. No laboratories today. OBJECTIVE: LUNGS: Clear to auscultation. CARDIAC: Regular rate and rhythm without murmur or gallop. ABDOMEN: Soft, nontender. EXTREMITIES: Groin wound almost completely closed. ASSESSMENT: Today, I talked to the patient regarding consideration of discharge, but he prefers to wait until tomorrow to Dr. Paula returns. Anticipate discharge home tomorrow. Job ID: [id number]
[2018-08-19] MEDS: Enoxaparin Sodium 40 MG/0.4 ML SYRINGE SC SCH ×2 (20:40→21:11)
[2018-08-20] MEDS: metroNIDAZOLE 500 MG in Premix Bag 1 BAG IVPB SCH ×2 (02:52→09:17)
[2018-08-20 06:17] LABS: ALT (SGPT) 13 U/L (8-55); AST (SGOT) 24 U/L (5-34); Albumin 2.3 g/dL (3.4-4.8); Alkaline Phosphatase 34 U/L (40-150); Anion Gap 10 mmol/L (10-20); BUN (Urea Nitrogen) 5 mg/dL (8.4-25.7); Bilirubin, Total 0.7 mg/dL (0.2-1.2); Calc. Creatinine Clearance 144 mL/min (70-130); Calcium 8.5 mg/dL (7.8-10.44); Carbon Dioxide 24 mmol/L (23-31); Chloride 101 mmol/L (98-107); Estimated GFR-MDRD Greater than 90; Globulin 4.2 g/dL (2.4-3.5); Glucose 102 mg/dL (80-115); Potassium 3.5 mmol/L (3.5-5.1); Protein, Total 6.5 g/dL (5.8-8.1); Sodium 131 mmol/L (136-145)
[2018-08-20 06:23] LABS: Band 11 % (5-11); Hemoglobin 9.2 g/dL (14.0-18.0); Lymphocytes 16 % (21-51); MDiff Complete? YES; Mean Corpuscular Hemoglobin 29.1 pg (27.0-31.0); Mean Corpuscular Volume 88.2 fL (78.0-98.0); Mean Platelet Volume 7.2 fL (7.4-10.4); Monocytes 7 % (0-10); Neutrophil 66 % (42-75); Platelet Count 303 thou/uL (130-400); RBC Distribution Width 14.4 % (11.5-14.5); Red Blood Cell (RBC) Count 3.16 mill/uL (4.70-6.10); White Blood Cell (WBC) Count 6.1 thou/uL (4.8-10.8)
[2018-08-20] MEDS: Famotidine 20 MG TAB PO SCH (08:19)
[2018-08-20] MEDS: Sodium Chloride 0.9% 1,000 ML IV SCH (08:19)
[2018-08-20] MEDS: Amoxicillin/Potassium Clav 875 MG TAB PO SCH (08:19)
[2018-08-20] MEDS: Ferrous Sulfate 325 MG TAB PO SCH (08:19)
[2018-08-20] MEDS: Tamsulosin HCl 0.4 MG CAP PO SCH (08:19)
[2018-08-20 15:50] VITALS: BP 133/76; TEMP 98.7
== END 2018-08-20 17:45 | disposition home or self-care (01) | DRG 812 ==
LOC: SURG A 10:16
PROVIDERS: ADMIT Specialist; ATTEND Specialist
PROC: 30233N1 Transfusion of Nonautologous Red Blood Cells into Peripheral Vein, Percutaneous Approach (ICD-10-PCS; principal; 2018-08-16)
DX: D64.9 Anemia, unspecified (principal); I10 Essential (primary) hypertension; Z85.048 Personal history of other malignant neoplasm of rectum, rectosigmoid junction, and anus; Z86.010 Personal history of colon polyps; Z86.711 Personal history of pulmonary embolism; Z90.49 Acquired absence of other specified parts of digestive tract; Z93.3 Colostomy status
CPT/HCPCS: 36415; 36416; 36430; 71045; 74177; 80048; 80053; 85025; 85610; 85730; 86850; 86900; 86901; 87070; 87205; 94640; G8978-GP-CK; G8979-GP-CJ; G8987-GO-CK; G8988-GO-CJ; J1650; J7620; P9016